=== PATIENT | male | born 1965 | race Caucasian/White ===

== ENCOUNTER 2020-03-13 08:28 | Outpatient (REF) | payer BC, SELFPAY ==
[2020-03-13 10:58] LABS: Hemoglobin A1c % > 14.0 %
[2020-03-13 11:10] LABS: Alanine Aminotransferase 27 U/L (0-40); Anion Gap 17 (12-20); Blood Urea Nitrogen 15 mg/dL (9-16); Carbon Dioxide 23 mmol/L (22-29); Chloride 94 mmol/L (96-108); Cholesterol 287 mg/dL; Estimated Glomerular Filt Rate > 60; Glucose Fasting 338 mg/dL (60-99); HDL Cholesterol 28 mg/dL; Potassium 4.3 mmol/l (3.3-5.1); Sodium 130 mmol/L (135-145); Triglycerides 649 mg/dL
[2020-03-13 11:29] LABS: Creatinine Urine 78.19 mg/dL; Microalbum/Creatinine Ratio Ur 24.2 ug/mg cr
== END 2020-03-13 08:29 | disposition home or self-care (01) ==
LOC: HO.10HDL 08:28
PROVIDERS: Visit Provider Family Medicine
DX: E11.9 Type 2 diabetes mellitus without complications (principal); I10 Essential (primary) hypertension; E78.00 Pure hypercholesterolemia, unspecified
CPT/HCPCS: 80051; 80061; 82043; 82550; 82565; 82947; 83036; 84460; 84520

== ENCOUNTER 2020-03-17 08:39 | Outpatient (REF) | payer BC, SELFPAY ==
[2020-03-17 09:40] LABS: Hemoglobin A1c % > 14.0 %
[2020-03-17 10:00] LABS: Cholesterol 264 mg/dL; Glucose Fasting 345 mg/dL (60-99); HDL Cholesterol 29 mg/dL; Triglycerides 586 mg/dL
== END 2020-03-17 08:40 | disposition home or self-care (01) ==
LOC: HO.LAB 08:39
PROVIDERS: Visit Provider Family Medicine
DX: E78.00 Pure hypercholesterolemia, unspecified (principal); E11.9 Type 2 diabetes mellitus without complications
CPT/HCPCS: 80061; 82947; 83036

== ENCOUNTER → 2022-09-05 08:20 | Outpatient (REF) | payer BC, SELFPAY ==
--- NOTE | 2022-09-05 | CA_ITS ---
Acquisition Time: 2022-09-05 08:59:48 Total Exercise Time: 00:09:27 Test Indications: rbbb, cp Medications: see h Protocol: CHRIS Max HR: 134 BPM 83% of Pred: 161 BPM Max BP: 182/088 mmHG Max Work Load: 10.1 METS Exercise stress test exercise 9 min 27 sec of Chris protocol stage 3 held, achieving 81% MPHR with need to stop due to fatigue, with mild sob, no chest discomfort, with isolated PACs and PVCs and ventricular cuplets, with normotensive response to exercise, without EKG changes. Nuclear images pending. Test reviewed with Dr. Angelo. Referred By: Hector Gaston Overread By: KYMBERLY GIVENS
--- NOTE | ~2022-09-05 | NM_ITS ---
Exercise Myocardial perfusion study Indication: Chest pain to evaluate for myocardial ischemia Technique: The patient was brought in for an exercise perfusion study on 09/05/2022. Patient performed exercise as per Syed protocol and was injected 40 mCi of sestamibi was given intravenously one target HR was achieved. Images were obtained using the SPECT gamma camera interlaced with the gating device. Images were obtained in supine position. Resting perfusion study was performed on 09/09/2022. Patient was administered 40 mCi of sestamibi intravenously at rest. Images were then obtained in supine position. Images obtained with and without CT attenuation. Total DLP 103 mGy-cm. Images were processed with the software and compared side to side in short axis, horizontal long axis and vertical long axis views. Findings: The stress perfusion study showed non attenuated images show mildly reduced uptake in the inferior wall and more prominently in the inferoapical wall of the LV myocardium. Remainder of the LV myocardium is normally perfused. Attenuation corrected images show mildly reduced uptake in the apex of the LV myocardium. The gated study shows normal LV systolic function with calculated LVEF of 63%. LV cavity is mildly dilated in size. The gated study shows normal systolic wall thickening and contraction of all segments. There is no transient ischemic dilation. Resting study shows no change in perfusion pattern compared to stress perfusion study. Gating at rest reveals normal systolic wall motion with ejection fraction at 59%. The findings are consistent with normal myocardial perfusion. NM/NM cat perf SPECT rest & str Impression: 1. Normal myocardial perfusion 2. Gated LVEF is 63% 3. Transient ischemic dilatation not present Stress EKG is negative for ischemia at workload achieved
== END ==
LOC: HO.CARD 08:20
PROVIDERS: PCP Family Medicine; Visit Provider Family Medicine
DX: R07.9 Chest pain, unspecified (principal); I10 Essential (primary) hypertension; E11.9 Type 2 diabetes mellitus without complications
CPT/HCPCS: 78452; 93017; A9500